=== PATIENT | female | born 1985 | race Caucasian/White ===

== ENCOUNTER 2017-04-04 13:48 | Emergency (ER) | payer SELFPAY ==
[~2017-04-04] VITALS: Ht 170.2 cm; Wt 83.9 kg
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
[2017-04-04] MEDS ORDERED: NAPR-1071 PO (15:41)
[2017-04-04] MEDS ORDERED: ORPH100T PO (15:41)
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
[2017-04-04 15:54] VITALS: BP 112/72
== END 2017-04-04 15:54 | disposition home or self-care (01) ==
LOC: ER 13:52
DX: S09.90XA Unspecified injury of head, initial encounter (principal); S16.1XXA Strain of muscle, fascia and tendon at neck level, initial encounter; F17.200 Nicotine dependence, unspecified, uncomplicated; V49.50XA Passenger injured in collision with unspecified motor vehicles in traffic accident, initial encounter
CPT/HCPCS: 70450; 72125; 99282